=== PATIENT | female | born 1995 | race Caucasian/White ===

== ENCOUNTER → 2017-04-23 | Outpatient (CLI) | payer BC | LOC: BMCIMAGING 09:01 | PROVIDERS: ATTEND Family Medicine | DX: R10.2 Pelvic and perineal pain (principal) ==

== ENCOUNTER 2017-08-02 01:51 | Emergency (ER) | payer BC ==
[2017-08-02 01:56] VITALS: RESP 16; O2SAT 95
[2017-08-02 02:40] LABS: COLOR YELLOW; LEUKOCYTE ESTERASE,URINE NEGATIVE (NEGATIVE); NITRITE,URINE NEGATIVE (NEGATIVE)
[2017-08-02 02:43] LABS: BACTERIA TRACE /hpf (NONE SEEN); MUCUS TRACE /lpf (NONE-1+); RBC,URINE 50-182 /hpf (0-3)
--- NOTE | 2017-08-02 03:02 | EDPHY ---
H & P Stated Complaint: UTI symptoms, N/V, R back pain Time Seen by Provider: 08/02/17 01:59 HPI/ROS: Chief Complaint: Urinary frequency, right-sided abdominal pain HPI: 22-year-old female with a history of urinary tract infections in the past woke at midnight with urinary urgency and frequency and pain in the right side of her abdomen. Symptoms similar to her prior urinary infections. Has not really had any burning with urination. Last menstrual period was 3 weeks ago was normal. Does not think she is . No fevers or chills. No nausea or vomiting or diarrhea. ROS: 10 point Review of Systems is negative except as noted in the HPI. PMH: UTIs Social History: No smoking, no alcohol, no recreational drug use Family History: non-contributory Physical Exam: Gen: Awake, Alert, No Distress HEENT: Nose: no rhinorrhea Eyes: PERRLA, EOMI Mouth: Moist mucosa Neck: Supple, no JVD Chest: nontender, lungs clear to auscultation Heart: S1, S2 normal, no murmur Abd: Soft, non-tender, no guarding Back: no CVA tenderness, no midline tenderness Ext: no edema, non-tender Skin: no rash Neuro: CN II-XII intact, Sensation grossly intact, Strength 5/5 in bilateral upper and lower extremities - Personal History LMP (Females 10-55): 22-28 Days Ago Current Tetanus/Diphtheria Vaccine: Yes - Medical/Surgical History Hx Asthma: No Hx Chronic Respiratory Disease: No Hx Diabetes: No Hx Cardiac Disease: No Hx Renal Disease: No Hx Cirrhosis: No Hx Alcoholism: No Hx HIV/AIDS: No Hx Splenectomy or Spleen Trauma: No Other PMH: recent hospitalization for pyelonephritis - Social History Smoking Status: Never smoked Constitutional: Initial Vital Signs Temperature (C) 36.9 C 08/02/17 01:54 Heart Rate 102 H 08/02/17 01:54 Respiratory Rate 16 08/02/17 01:54 Blood Pressure 114/76 08/02/17 01:54 O2 Sat (%) 95 08/02/17 01:54 O2 Delivery Mode Room Air Allergies/Adverse Reactions: hydrocodone Allergy (Mild, Verified 08/02/17 01:56) GI Home Medications: Medication Instructions Recorded Loestrin 21 1-20 Tablet 08/02/17 Tamsulosin HCl 0.4 mg PO DAILY #10 cap 08/02/17 Medical Decision Making ED Course/Re-evaluation: Urinalysis shows hematuria with no pyuria. Will order CT scan to evaluate for kidney stone. CT scan noted. 6 mm distal right UVJ stone. With moderate hydro. No evidence of: Citing infection. Patient is comfortable. Will discharge with ibuprofen, tamsulosin, follow up with Urology. Urine strainer as well. - Data Points Laboratory Results: 08/02/17 08/02/17 02:29 02:29 Urine Color YELLOW Urine Appearance HAZY Urine pH 6.0 (5.0-7.5) Ur Specific [place] 1.015 (1.002-1.030) Urine Protein NEGATIVE (NEGATIVE) Urine Ketones NEGATIVE (NEGATIVE) Urine Blood 3+ H (NEGATIVE) Urine Nitrate NEGATIVE (NEGATIVE) Urine Bilirubin NEGATIVE (NEGATIVE) Urine Urobilinogen NEGATIVE EU EU (0.2-1.0) Ur Leukocyte Esterase NEGATIVE (NEGATIVE) Urine RBC 50-182 /hpf H /hpf (0-3) Urine WBC 1-3 /hpf /hpf (0-3) Ur Epithelial Cells TRACE /lpf /lpf (NONE-1+) Urine Bacteria TRACE /hpf H /hpf (NONE SEEN) Urine Mucus TRACE /lpf /lpf (NONE-1+) Urine Glucose NEGATIVE (NEGATIVE) Urine Test NEGATIVE Medications Given: Discontinued Medications Ketorolac Tromethamine (Toradol) 30 mg IM EDNOW ONE Stop: 08/02/17 03:22 Last Admin: 08/02/17 03:25 Dose: 30 mg Ondansetron HCl (Zofran Odt) 4 mg PO EDNOW ONE Stop: 08/02/17 03:28 Last Admin: 08/02/17 03:30 Dose: 4 mg Departure - Departure Disposition: Home, Routine, Self-Care Clinical Impression: Kidney stone Condition: Good Instructions: Kidney Stones (ED), How to Strain Your Urine (ED), Ondansetron ( By mouth) Additional Instructions: You may take ibuprofen 600 mg every 6 hr as needed for pain. You may also take acetaminophen 1000 mg every 4 hr in addition to the ibuprofen. You may take Zofran as needed for nausea or vomiting. Take tamsulosin daily to help to allow the kidney stone the past. Follow up with Urology in 3-4 days for further evaluation. Return to the emergency department for uncontrolled pain, fevers, chills, or any other concerns. Referrals: JOHNNY NUÑEZ [Other] - As per Instructions Allen Chinchilla MD [Medical Doctor] - As per Instructions Prescriptions: Tamsulosin HCl 0.4 mg PO DAILY #10 cap
[2017-08-02] MEDS ORDERED: KETOROLAC 30 MG/1 ML SDV IM ONE (03:21)
[2017-08-02] MEDS ORDERED: ONDANSETRON DISINTEGRATING 4 MG TAB PO ONE (03:27)
[2017-08-02] MEDS ORDERED: ONDANSETRON 4MG PREPACK#2 BTL TAKEHOME ONE (03:36)
[2017-08-02 03:51] VITALS: BP 105/82; PULSE 92; TEMP 98.6
== END 2017-08-02 03:50 | disposition home or self-care (01) ==
DX: N20.0 Calculus of kidney (principal)
CPT/HCPCS: J1885

== ENCOUNTER → 2017-08-04 | Outpatient (CLI) | payer BC | LOC: FIMAGING 11:01 | PROVIDERS: ATTEND Specialist | DX: I87.8 Other specified disorders of veins (principal); K59.00 Constipation, unspecified; Z87.442 Personal history of urinary calculi ==

== ENCOUNTER 2018-03-09 12:16 | Emergency (ER) | payer BC, OTHER ==
[2018-03-09] MEDS ORDERED: NS 1,000 ML IV ONE (13:20)
[2018-03-09] MEDS ORDERED: fentaNYL 100 MCG/2 ML INJ IVP ONE (13:20)
--- NOTE | 2018-03-09 13:25 | EDPHY ---
H & P Time Seen by Provider: 03/09/18 12:24 HPI/ROS: CHIEF COMPLAINT: Right low back pain, urinary frequency HISTORY OF PRESENT ILLNESS: 23-year-old female presents to the emergency department with right low back pain and urinary frequency over last 24 hr. The patient states that she had a kidney stone diagnosed in July of 2017 and this feels very similar. She denies radiation of pain into her abdomen or in her groin. She has had urinary frequency and some urgency, however no dysuria. No reported trauma. She feels that the pain is getting worse. She denies fevers or chills. No nausea or vomiting. No other abdominal pain. REVIEW OF SYSTEMS: Constitutional: No fever, no chills. Eyes: No double or blurry vision. ENT: No sore throat. Respiratory: No cough, no shortness of breath. Cardiac: No chest pain. Gastrointestinal: No abdominal pain, vomiting or diarrhea. Genitourinary: No dysuria. Musculoskeletal: Right low back pain. No neck pain. Skin: No rashes. Neurological: No headache. Past Medical/Surgical History: Kidney stone July 2017, pyelonephritis Social History: [employer] student Smoking Status: Never smoked Physical Exam: General Appearance: Alert, no distress. Afebrile. No apparent distress. Eyes: Pupils equal and round. Extraocular motions are all intact. ENT: Mouth: Mucous membranes moist. Respiratory: No wheezing, rhonchi, or rales, lungs are clear to auscultation. Cardiovascular: Regular rate and rhythm. Gastrointestinal: Abdomen is soft and nontender, no masses, no rebound or guarding, bowel sounds normal. Neurological: Alert and oriented x 3, cranial nerves II through XII grossly intact Skin: Warm and dry, no rashes. Musculoskeletal: Nontender to palpate along the cervical, thoracic or lumbar spine. Neck is supple. Extremities: Full range of motion and no peripheral edema. Psychiatric: Patient is oriented X 3, there is no agitation. Constitutional: Initial Vital Signs Temperature (C) 36.7 C 03/09/18 12:19 Heart Rate 84 03/09/18 12:19 Respiratory Rate 17 03/09/18 12:19 Blood Pressure 105/80 03/09/18 12:19 O2 Sat (%) 96 03/09/18 12:19 O2 Delivery Mode Room Air Allergies/Adverse Reactions: hydrocodone Allergy (Mild, Verified 03/09/18 12:17) GI Home Medications: Medication Instructions Recorded Loestrin 21 1-20 Tablet 08/02/17 Lexapro 03/09/18 Medical Decision Making ED Course/Re-evaluation: 23-year-old female presents to the emergency department complaining of right low back pain. The patient is concerned that she has recurring kidney stone. The patient did have small amount of red blood cells in her urine. I discussed the pros and cons of CT imaging of her abdomen and pelvis including radiation exposure the patient agreed. CT imaging reveals no signs of kidney stone or hydronephrosis. She does have a gross noted in the bladder wall which will require follow-up with her urologist. This was discussed with the patient. She was referred back to her urologist, Dr. Chinchilla. The patient is comfortable being discharged home. She will return if she has any change in symptoms or feels worse. Differential Diagnosis: Back pain including but not limited to muscular pain, herniated disc, spine fracture, intra-abdominal causes and urinary tract infection. - Data Points Laboratory Results: Laboratory Results 03/09/18 13:00 03/09/18 13:00 Medications Given: Discontinued Medications Fentanyl (Sublimaze) 50 mcg IVP EDNOW ONE Stop: 03/09/18 13:21 Last Admin: 03/09/18 13:30 Dose: 50 mcg Sodium Chloride (Ns) 1,000 mls @ 0 mls/hr IV ONCE ONE PRN Reason: Wide Open Stop: 03/09/18 13:21 Last Admin: 03/09/18 13:29 Dose: 1,000 mls Departure - Departure Disposition: Home, Routine, Self-Care Clinical Impression: Back pain Qualifiers: Back pain location: low back pain Chronicity: acute Back pain laterality: right Sciatica presence: without sciatica Qualified Code(s): M54.5 - Low back pain Condition: Good Instructions: Back Pain (ED) Additional Instructions: Ibuprofen 600mg every 8 hours for pain as directed. Follow up with urologist regarding growth on bladder wall. Referrals: Nayeli Farias MD [Primary Care Provider] - As per Instructions Allen Chinchilla MD [Medical Doctor] - As per Instructions (Urologist)
[2018-03-09 13:28] LABS: PLATELET COUNT 359 10^3/uL (150-400)
[2018-03-09 15:57] VITALS: BP 99/67
== END 2018-03-09 15:56 | disposition home or self-care (01) ==
DX: M54.5 Low back pain (principal)
CPT/HCPCS: 96374; J3010

== ENCOUNTER 2018-09-01 02:27 | Emergency (ER) | payer BC, OTHER ==
[2018-09-01] MEDS ORDERED: LIDOCAINE 2% VISCOUS 15 ML UDCUP PO ONE (02:43)
[2018-09-01] MEDS ORDERED: NS 1,000 ML IV ONE (02:43)
[2018-09-01] MEDS ORDERED: HYOSCYAMINE SULFATE 0.125 MG TAB PO ONE (02:43)
[2018-09-01] MEDS ORDERED: MAG HYDROX/AL HYDROX/SIMETH 30 ML UDCUP PO ONE (02:43)
[2018-09-01] MEDS ORDERED: PROMETHAZINE HCL 25 MG/ML INJ IVP ONE ×2 (02:44→05:06)
--- NOTE | 2018-09-01 02:48 | EDPHY ---
H & P Stated Complaint: EPIGASTRIC PAIN N/V/D X 1 HR Time Seen by Provider: 09/01/18 02:45 HPI/ROS: HPI CHIEF COMPLAINT: Nausea, vomiting, diarrhea, abdominal pain. HISTORY OF PRESENT ILLNESS: 23-year-old female presents emergency room nausea vomiting and diarrhea abdominal cramps. Mainly in her epigastric region. This woke from sleep. She vomited multiple times nonbilious nonbloody. Watery diarrhea. No fever. Denies recent illness. Decided to come to the the emergency room with ongoing nausea. Symptoms started an hour ago. Past Medical History: Denies medical history Past Surgical History: Denies surgical history Social History: Denies drugs alcohol tobacco. Family History: Noncontributory ROS REVIEW OF SYSTEMS: 10 Systems were reviewed and negative with the exception of the elements mentioned in the history of present illness. Exam Constitutional nontoxic. No acute distress, triage nursing summary reviewed, vital signs reviewed, awake/alert. Eyes normal conjunctivae and sclera, EOMI, PERRLA. HENT normal inspection, atraumatic, moist mucus membranes, no epistaxis, neck supple/ no meningismus, no raccoon eyes. Respiratory clear to auscultation bilaterally, normal breath sounds, no respiratory distress, no wheezing. Cardiovascular rate normal, regular rhythm, no murmur, no edema, distal pulses normal. Gastrointestinal soft, non-tender, no rebound, no guarding, normal bowel sounds, no distension, no pulsatile mass. Genitourinary no CVA tenderness. Musculoskeletal no midline vertebral tenderness, full range of motion, no calf swelling, no tenderness of extremities, no meningismus, good pulses, neurovascularly intact. Skin pink, warm, & dry, no rash, skin atraumatic. Neurologic awake, alert and oriented x 3, AAOx3, moves all 4 extremities equally, motor intact, sensory intact, CN II-XII intact, normal cerebellar, normal vision, normal speech. Psychiatric normal mood/affect. Heme/Lymph/Immune no lymphadenopathy. Differential Diagnosis: Differential diagnosis includes but is not limited to and in no particular order: Bowel obstruction, appendicitis, gallbladder disease, diverticulitis, colitis, enteritis, perforated viscus, gastritis, GERD , esophagitis, urinary tract infection, pyelonephritis, kidney stones Medical Decision Making: Plan for this patient IV establishment IV bolus, Zofran for nausea, GI cocktail for GI upset, basic blood work, test, urinalysis, electrolytes, liver enzymes lipase and re-evaluate. Re-evaluation: 0532AM: Re-examination at this time abdomen remained soft nontender. Patient states she is feeling much better. Patient requesting be discharged home. Abdomen reexamine soft nontender. Patient not vomiting. She was able to p.o. Challenge well without any difficulty. Labs reviewed We did not perform CT imaging is a felt her abdomen was soft nontender. She is not vomiting here. However she does understand if she has worsening abdominal pain fever vomiting to return emergency room. Most likely cause of nausea vomiting and diarrhea as GI illness. Possibly food- borne. Recommend bland diet over the next 24-48 hours. Return if worse. She is comfortable with this Source: Patient - Personal History LMP (Females 10-55): 8-14 Days Ago Current Tetanus Diphtheria and Acellular Pertussis (TDAP): Yes - Medical/Surgical History Hx Asthma: No Hx Chronic Respiratory Disease: No Hx Diabetes: No Hx Cardiac Disease: No Hx Renal Disease: No Hx Cirrhosis: No Hx Alcoholism: No Hx HIV/AIDS: No Hx Splenectomy or Spleen Trauma: No Other PMH: recent hospitalization for pyelonephritis - Social History Smoking Status: Never smoked Constitutional: Initial Vital Signs Temperature (C) 36.3 C 09/01/18 02:31 Heart Rate 117 H 09/01/18 02:31 Respiratory Rate 18 09/01/18 02:31 Blood Pressure 113/94 H 09/01/18 02:31 O2 Sat (%) 97 09/01/18 02:31 O2 Delivery Mode Room Air Allergies/Adverse Reactions: hydrocodone Allergy (Mild, Verified 03/09/18 12:17) GI Home Medications: Medication Instructions Recorded Loestrin 21 1-20 Tablet 08/02/17 Lexapro 03/09/18 Medical Decision Making - Data Points Laboratory Results: Laboratory Results 09/01/18 02:45 09/01/18 02:45 09/01/18 09/01/18 09/01/18 02:50 02:45 02:45 WBC RBC Hgb Hct MCV MCH MCHC RDW Plt Count MPV Neut % (Auto) Lymph % (Auto) [place] % (Auto) Eos % (Auto) Baso % (Auto) Nucleat RBC Rel Count Absolute Neuts (auto) Absolute Lymphs (auto) Absolute Monos (auto) Absolute Eos (auto) Absolute Basos (auto) Absolute Nucleated RBC Immature Gran % Immature Gran # Sodium 138 mEq/L mEq/L (135-145) Potassium 4.2 mEq/L mEq/L (3.5-5.2) Chloride 108 mEq/L mEq/L (97-110) Carbon Dioxide 22 mEq/l mEq/l (22-31) Anion Gap 8 mEq/L mEq/L (6-14) BUN 10 mg/dL mg/dL (7-23) Creatinine 0.6 mg/dL mg/dL (0.6-1.0) Estimated GFR > 60 Glucose 104 mg/dL H mg/dL (70-100) Calcium 9.4 mg/dL mg/dL (8.5-10.4) Total Bilirubin 0.5 mg/dL mg/dL (0.1-1.4) Conjugated Bilirubin 0.3 mg/dL mg/dL (0.0-0.5) Unconjugated Bilirubin 0.2 mg/dL mg/dL (0.0-1.1) AST 28 IU/L IU/L (14-46) ALT 25 IU/L IU/L (9-52) Alkaline Phosphatase 67 IU/L IU/L (38-126) Total Protein 8.0 g/dL g/dL (6.3-8.2) Albumin 4.6 g/dL g/dL (3.5-5.0) Lipase 41 IU/L IU/L (23-300) Beta HCG, Qual NEGATIVE Urine Color YELLOW Urine Appearance HAZY Urine pH 5.0 (5.0-7.5) Ur Specific [place] 1.023 (1.002-1.030) Urine Protein NEGATIVE (NEGATIVE) Urine Ketones NEGATIVE (NEGATIVE) Urine Blood NEGATIVE (NEGATIVE) Urine Nitrate NEGATIVE (NEGATIVE) Urine Bilirubin NEGATIVE (NEGATIVE) Urine Urobilinogen NEGATIVE EU EU (0.2-1.0) Ur Leukocyte Esterase NEGATIVE (NEGATIVE) Urine Glucose NEGATIVE (NEGATIVE) 09/01/18 02:45 WBC 16.97 10^3/uL H 10^3/uL (3.80-9.50) RBC 5.18 10^6/uL 10^6/uL (4.18-5.33) Hgb 14.6 g/dL g/dL (12.6-16.3) Hct 42.8 % % (38.0-47.0) MCV 82.6 fL fL (81.5-99.8) MCH 28.2 pg pg (27.9-34.1) MCHC 34.1 g/dL g/dL (32.4-36.7) RDW 12.7 % % (11.5-15.2) Plt Count 346 10^3/uL 10^3/uL (150-400) MPV 9.2 fL fL (8.7-11.7) Neut % (Auto) 80.8 % H % (39.3-74.2) Lymph % (Auto) 11.7 % L % (15.0-45.0) [place] % (Auto) 6.4 % % (4.5-13.0) Eos % (Auto) 0.4 % L % (0.6-7.6) Baso % (Auto) 0.2 % L % (0.3-1.7) Nucleat RBC Rel Count 0.0 % % (0.0-0.2) Absolute Neuts (auto) 13.71 10^3/uL H 10^3/uL (1.70-6.50) Absolute Lymphs (auto) 1.99 10^3/uL 10^3/uL (1.00-3.00) Absolute Monos (auto) 1.09 10^3/uL H 10^3/uL (0.30-0.80) Absolute Eos (auto) 0.07 10^3/uL 10^3/uL (0.03-0.40) Absolute Basos (auto) 0.03 10^3/uL 10^3/uL (0.02-0.10) Absolute Nucleated RBC 0.00 10^3/uL 10^3/uL (0-0.01) Immature Gran % 0.5 % % (0.0-1.1) Immature Gran # 0.08 10^3/uL 10^3/uL (0.00-0.10) Sodium Potassium Chloride Carbon Dioxide Anion Gap BUN Creatinine Estimated GFR Glucose Calcium Total Bilirubin Conjugated Bilirubin Unconjugated Bilirubin AST ALT Alkaline Phosphatase Total Protein Albumin Lipase Beta HCG, Qual Urine Color Urine Appearance Urine pH Ur Specific [place] Urine Protein Urine Ketones Urine Blood Urine Nitrate Urine Bilirubin Urine Urobilinogen Ur Leukocyte Esterase Urine Glucose Medications Given: Discontinued Medications Al Hydroxide/Mg Hydroxide (Maalox Susp) 30 ml PO ONCE ONE Stop: 09/01/18 02:44 Last Admin: 09/01/18 02:52 Dose: 30 ml Hyoscyamine Sulfate (Levsin, Hyomax-Sl) 0.25 mg PO ONCE ONE Stop: 09/01/18 02:44 Last Admin: 09/01/18 02:52 Dose: 0.25 mg Sodium Chloride (Ns) 1,000 mls @ 0 mls/hr IV EDNOW ONE; Wide Open PRN Reason: Protocol Stop: 09/01/18 02:44 Last Admin: 09/01/18 02:52 Dose: 1,000 mls Lidocaine (Lidocaine 2% Viscous) 15 ml PO ONCE ONE Stop: 09/01/18 02:44 Last Admin: 09/01/18 02:52 Dose: 15 ml Promethazine HCl (Phenergan) 6.25 mg IVP ONCE ONE Stop: 09/01/18 02:45 Last Admin: 09/01/18 02:52 Dose: 6.25 mg Promethazine HCl (Phenergan) 6.25 mg IVP ONCE ONE Stop: 09/01/18 05:07 Last Admin: 09/01/18 05:07 Dose: 6.25 mg Departure - Departure Disposition: Home, Routine, Self-Care Clinical Impression: Abdominal pain Qualifiers: Abdominal location: generalized Qualified Code(s): R10.84 - Generalized abdominal pain Nausea & vomiting Qualifiers: Vomiting type: unspecified Vomiting Intractability: non-intractable Qualified Code(s): R11.2 - Nausea with vomiting, unspecified Condition: Good Instructions: Acute Nausea and Vomiting (ED), Abdominal Pain (ED) Additional Instructions: 1. [place] diet over the next 48 hr 2. Return emergency room worsening abdominal pain, fever, vomiting. Referrals: Nayeli Farias MD [Primary Care Provider] - As per Instructions
[2018-09-01 02:57] LABS: PLATELET COUNT 346 10^3/uL (150-400)
[2018-09-01 04:49] VITALS: BP 108/72
[2018-09-01] MEDS ORDERED: PROMETHAZINE HCL 25 MG/ML INJ ONE (05:05)
== END 2018-09-01 05:46 | disposition home or self-care (01) ==
DX: R10.84 Generalized abdominal pain (principal); R11.2 Nausea with vomiting, unspecified; E86.9 Volume depletion, unspecified
CPT/HCPCS: 96374; J2550